=== PATIENT | female | born 2000 | race Caucasian/White ===

== ENCOUNTER 2020-10-10 17:38 | Emergency (ER) | payer BC ==
[~2020-10-10] VITALS: Ht 165.1 cm; Wt 63.5 kg
[2020-10-10 18:43] LABS: BASO % 0 % (0-3); EOS # 0.1 x10^3/uL (0.0-0.7); EOS % 2 % (0-3); HEMATOCRIT 37.2 % (36.0-47.0); LYMPH # 1.8 x10^3/uL (1.0-4.8); LYMPH % 20 % (24-48); MEAN CORPUSCULAR HEMOGLOBIN 30 pg (25-35); MEAN CORPUSCULAR HGB CONC 35 g/dL (31-37); MEAN CORPUSCULAR VOLUME 86 fL (79-100); MONO # 0.6 x10^3/uL (0.0-1.1); MONO % 7 % (0-9); NEUT # 6.5 x10^3uL (1.8-7.7); NEUT % 72 % (31-73); PLATELET COUNT 242 x10^3/uL (140-400); RED BLOOD COUNT 4.32 x10^6/uL (3.50-5.40)
--- NOTE | 2020-10-10 18:53 | PHYS DOC ---
Past History Past Medical History: No Pertinent History (MALINI CISNEROS APRN) Past Surgical History: Other Additional Past Surgical Histo: wisdom teeth extracted (MALINI CISNEROS APRN) Alcohol Use: None (MALINI CISNEROS APRN) General Adult EDM: Chief Complaint: CHEST PAIN HPI: HPI: Patient is a 20-year-old female who presents with chest pressure. Patient states "about noon today I started having pain in my back that went through to my chest". Patient denies shortness of breath, cough, recent illness. Denies nausea and vomiting. Patient is P1, G0. LMP 2/8. Denies taking anything for discomfort. Denies anything that makes the pain worse or better. Denies medical history. (MALINI CISNEROS APRN) Review of Systems: Review of Systems: Constitutional: Denies fever or chills Eyes: Denies change in visual acuity HENT: Denies nasal congestion or sore throat Respiratory: Denies cough or shortness of breath Cardiovascular: Reports epigastric chest pressure GI: Denies abdominal pain, nausea, vomiting, bloody stools or diarrhea : Denies dysuria Musculoskeletal: Denies back pain or joint pain Integument: Denies rash Neurologic: Denies headache, focal weakness or sensory changes Endocrine: Denies polyuria or polydipsia Lymphatic: Denies swollen glands Psychiatric: Denies depression or anxiety (MALINI CISNEROS APRN) Allergies: Allergies: Allergies Coded Allergies Type Severity Reaction Last Updated Verified No Known Drug Allergies 10/10/20 No (MALINI CISNEROS APRN) Physical Exam: PE: Constitutional: Well developed, well nourished, no acute distress, non-toxic appearance. [] HENT: Normocephalic, atraumatic, bilateral external ears normal, oropharynx moist, no oral exudates, nose normal. [] Eyes: PERRLA, EOMI, conjunctiva normal, no discharge. [] Neck: Normal range of motion, no tenderness, supple, no stridor. [] Cardiovascular:Heart rate regular rhythm, no murmur [] Lungs & Thorax: Bilateral breath sounds clear to auscultation [] Abdomen: Bowel sounds normal, soft, no tenderness, no masses, no pulsatile masses. [] Skin: Warm, dry, no erythema, no rash. [] Back: No tenderness, no CVA tenderness. [] Extremities: No tenderness, no cyanosis, no clubbing, ROM intact, no edema. [] Neurologic: Alert and oriented X 3, normal motor function, normal sensory function, no focal deficits noted. [] Psychologic: Affect normal, judgement normal, mood normal. [] (MALINI CISNEROS APRN) Current Patient Data: Vital Signs: Vital Signs Date Time Temp Pulse Resp B/P (MAP) Pulse Ox O2 Delivery O2 Flow Rate FiO2 10/10/20 17:59 99.4 108 20 124/79 (94) 100 (MALINI CISNEROS APRN) EKG: EKG: Sinus tachycardia, heart rate [address] Tenorio at 1755 [] (MALINI CISNEROS APRN) Radiology/Procedures: Radiology/Procedures: [] (MALINI CISNEROS APRN) Heart Score: C/O Chest Pain: Yes HEART Score for Chest Pain: HEART Score for Chest Pain Response (Comments) Value History Slighlty/Non-Suspicious 0 ECG Normal 0 Age < 45 0 Risk Factors No Risk Factors 0 Troponin < Normal Limit 0 Total 0 Risk Factors: Risk Factors: DM, Current or recent (<one month) smoker, HTN, HLP, family history of CAD, obesity. Risk Scores: Score 0 - 3: 2.5% MACE over next 6 weeks - Discharge Home Score 4 - 6: 20.3% MACE over next 6 weeks - Admit for Clinical Observation Score 7 - 10: 72.7% MACE over next 6 weeks - Early Invasive Strategies (MALINI CISNEROS APRN) Course & Med Decision Making: Course & Med Decision Making Pertinent Labs and Imaging studies reviewed. (See chart for details) [] 20-year-old female presents with chest pressure. Patient reports that pain started about noon today. Patient described the pain as starting in her back and went through to her chest in her epigastric area. Patient reports pain is a pressure. Patient is P1, G0. Patient denies abdominal pain, bleeding, cramping, nausea/vomiting. heart tones are 135-145. All labs unremarkable. Troponin is negative. Heart score of 0. UA is negative for infection. Discussed results with patient. Patient to call her OB in the morning and make a follow-up appointment. Patient most likely was having GERD symptoms. Patient is hemodynamically stable. Patient is appreciative and okay with discharge plan. (MALINI CISNEROS APRN) Amada Disclaimer: Amada Disclaimer: This electronic medical record was generated, in whole or in part, using a voice recognition dictation system. (MALINI CISNEROS APRN) Departure Departure: Impression: Primary Impression: Chest pain due to GERD Additional Impression: Acute chest wall pain Disposition: HOME / SELF CARE / HOMELESS Condition: STABLE Referrals: PCP,NO (PCP) Patient Instructions: Chest Pain (Nonspecific), [id number] Additional Instructions: You were seen in the emergency room for chest pain. All of your labs were unremarkable. Your urine was negative for infection. Please call your LABEL MAKER in the morning for a follow-up appointment. Please return to the emergency room with worsening symptoms or concerns. EMERGENCY DEPARTMENT GENERAL DISCHARGE INSTRUCTIONS Thank you for coming to [facility] (ED) today and trusting us with you care. We trust that you had a positivie experience in our Emergency Department. If you wish to speak to the department management, you may call the director at [phone]. YOUR FOLLOW UP INSTRUCTIONS ARE FOLLOWS: 1. Do you have a private Doctor? If you do not have a private doctor, please ask for a resource list of physicians or clinics that may be able to assist you with follow up care. 2. The Emergency Physician has interpreted your x-rays. The X-Ray specialist will also review them. If there is a change in the findings, you will be notified in 48 hours when at all possible. 3. A lab test or culture has been done, your results will be reviewed and you will be notified if you need a change in treatment. ADDITIONAL INSTRUCTIONS AND INFORMATION: 1. Your care today has been supervised by a physician who is specially trained in emergency care. Many problems require more than one evaluation for a complete diagnosis and treatment. We recommend that you schedule your follow up appointment as recommended to ensure complete treatment of you illness or injury. If you are unable to obtain follow up care and continue to have a problem, or if your condition worsens, we recommend that you return to the ED. 2. We are not able to safely determine your condition over the phone nor are we able to give sound medical advice over the phone. For these safety reasons, if you call for medical advice we will ask you to come to the ED for further evaluation. 3. If you have any questions regarding these discharge instructions please call the ED at [phone]. SAFETY INFORMATION: In the interest of safety, wellness, and injury prevention; we encourage you to wear your sealbelt, if you smoke; quite smoking, and we encourage family to use a protective helmet for bicycling and other sporting events that present an increased risk for head injury. IF YOUR SYMPTOMS WORSEN OR NEW SYMPTOMS DEVELOP, OR YOU HAVE CONCERNS ABOUT YOUR CONDITION; OR IF YOUR CONDITION WORSENS WHILE YOU ARE WAITING FOR YOUR FOLLOW UP APPOINTMENT; EITHER CONTACT YOUR PRIMARY CARE DOCTOR, THE PHYSICIAN WHOSE NAME AND NUMBER YOU WERE GIVEN, OR RETURN TO THE ED IMMEDIATELY. Attending Signature Attending Signature I have reviewed the PA/MANAGER PROGRAM MANAGEMENT's note and plan of care. I was available for consultation as needed during the patient's visit in the emergency department. I agree with the clinical impression, plan, and disposition. (ISRAEL TENORIO DO) MALINI CISNEROS APRN Oct 10, 2020 18:53 ISRAEL TENORIO DO Oct 10, 2020 23:24
[2020-10-10 19:11] LABS: ALBUMIN 3.3 g/dL (3.4-5.0); ALBUMIN/GLOBULIN RATIO 0.9 (1.0-1.7); CALCIUM 8.3 mg/dL (8.5-10.1); CREATININE 0.6 mg/dL (0.6-1.0); GFR 127.5; POTASSIUM 3.7 mmol/L (3.5-5.1); TOTAL BILIRUBIN 0.2 mg/dL (0.2-1.0); TOTAL PROTEIN 7.1 g/dL (6.4-8.2)
[2020-10-10 20:44] LABS: BILIRUBIN,URINE NEG (NEG); CLARITY,URINE CLEAR; COLOR,URINE YELLOW; GLUCOSE,URINE NEG (NEG); NITRITE,URINE NEG (NEG); UROBILINOGEN,URINE 0.2 mg/dL (0.2 mg/dL)
[2020-10-10 20:46] LABS: BACTERIA,URINE 0 /HPF (0-FEW); GRANULAR CASTS,URINE FEW /HPF; RBC,URINE OCC /HPF (0-2); SQUAMOUS EPITHELIAL CELL,UR OCC /LPF; WBC,URINE 0 /HPF (0-4)
[2020-10-10 20:47] VITALS: BP 132/76
[2020-10-10] MEDS ORDERED: ACETAMINOPHEN 500 MG TABLET PO ONE (21:30)
--- NOTE | 2020-10-13 06:26 | EKG ---
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
== END 2020-10-10 21:19 | disposition home or self-care (01) ==
LOC: ER 17:38
DX: K21.9 Gastro-esophageal reflux disease without esophagitis (principal); R07.89 Other chest pain
CPT/HCPCS: 36415; 80053; 81001; 84484; 85025; 93005; 99284